=== PATIENT | female | born 1970 | race Caucasian/White ===

== ENCOUNTER 2020-04-22 14:01 | Outpatient (CLI) | payer OTHER, SELFPAY ==
--- NOTE | ~2020-04-22 | US_ITS ---
EXAMINATION: US art doppler w press UE BI EXAM DATE: 04/22/2020 14:51 INDICATION: Left subclavian stenosis. Hypertension. TECHNIQUE: Segmental pressures and plethysmographic and Doppler waveforms of the upper extremity anay jose cruz were obtained. There is no prior study for comparison. FINDINGS: Right and left brachial artery pressures of 151 mm Hg and 153 mm Hg, respectively, are concordant (no rmal difference <= 30 mmHg). RIGHT: Right ulnar/brachial arterial Doppler ratio 1.05 (158 mmHg). Right radial/brachial arterial Doppler ratio 1.03 (156 mmHg). Right index finger 139 mmHg. The waveforms are biphasic. LEFT: Left ulnar/brachial arterial Doppler ratio 1.04 (159 mmHg). Left radial/brachial arterial ratio 1.12 (171 mmHg). Left index finger 144 mmHg. The waveforms are biphasic. IMPRESSION: Symmetric upper extremity Doppler ratios. Reviewed, dictated and finalized at location A. NERATOR OPERATOR
== END 2020-04-22 14:02 | disposition home or self-care (01) ==
PROVIDERS: PCP Family Medicine; Visit Provider Family Medicine
DX: I77.1 Stricture of artery (principal)
CPT/HCPCS: 93923

== ENCOUNTER 2020-05-06 12:11 | Outpatient (CLI) | payer OTHER, SELFPAY ==
--- NOTE | ~2020-05-06 | XR_ITS ---
EXAMINATION: XR shoulder LT min 2V DATE: 05/06/2020 12:37 INDICATION: Left shoulder pain. TECHNIQUE: 5 views of left shoulder were obtained. COMPARISON: None. FINDINGS: Bone alignment is normal. No fracture. There is mild osteoarthritis of glenohumeral joint a nd acromioclavicular joint. There is calcific tendinitis of the rotator cuff. There are dystrophic ca lcifications posterior to the glenohumeral joint. IMPRESSION: 1. Polyarticular osteoarthritis. 2. Calcific tendinitis of the rotator cuff. Reviewed, dictated and finalized at location A. STATION CLERK
== END 2020-05-06 12:12 | disposition home or self-care (01) ==
PROVIDERS: PCP Family Medicine; Visit Provider Physician Assistant
DX: M19.012 Primary osteoarthritis, left shoulder (principal); M75.32 Calcific tendinitis of left shoulder
CPT/HCPCS: 73030

== ENCOUNTER → 2021-05-17 02:01 | Outpatient (CLI) | payer OTHER, SELFPAY ==
[2021-05-17 13:07] LABS: SARS-CoV-2 RNA PCR Negative
== END ==
PROVIDERS: PCP Family Medicine; Visit Provider Internal Medicine Gastroenterology
DX: Z01.812 Encounter for preprocedural laboratory examination (principal); Z20.822 Contact with and (suspected) exposure to COVID-19
CPT/HCPCS: C9803; U0003; U0005

== ENCOUNTER 2021-05-20 00:25 | Day surgery (SDC) | payer OTHER, SELFPAY ==
[2021-05-11 11:51] VITALS: BMI 32.3
[2021-05-20 09:41] VITALS: BP 137/70; PULSE 83; RESP 16; TEMP 36.2; O2SAT 97
[2021-05-20] MEDS: LACTATED RINGERS 1,000 ML 150 ML IV CONT (09:53)
[2021-05-20 09:54] LABS: Glucose Point of Care 148 mg/dl (65-105)
--- NOTE | 2021-05-20 10:07 | WPDGICN ---
Assessment and Plan Assessment and plan (1) Rectal bleeding: Code(s): K62.5 - Hemorrhage of anus and rectum Status: Acute Assessment and Plan: Patient notes rectal bleeding. Bright red blood per rectum with no associated plane. Plan is for colonoscopy to evaluate more thoroughly. Further recommendations will be given after colonoscopy. GI Consult Note Consult date/time: 05/20/21 10:07 HPI: Ayana Stevens is a 50 year old female Referred because of rectal bleeding. Patient notes a long history of bright red blood per rectum typically this will ooze from rectal she area she will need to wear a pad. She notices this sometimes will drip even when sitting on the toilet to urinate. Primarily noted blood with wiping. But sometimes it will change the color of the toilet water. Patient denies any abdominal pain. She reports her bowel habits are normal. She reports that when she urinates it is clear no blood from this area. She presents today for colonoscopy. Review of Systems Review of Systems: Patient complains of dextroscoliosis and difficulty lying on an incline. All systems reviewed & are unremarkable except as noted in HPI and below PMFSH Past Medical History Medical History Allergic rhinitis, cause unspecified Anxiety Essential (primary) hypertension Fatty liver Hepatic cirrhosis Left shoulder pain Low back pain Microcalcification of right breast on mammogram Mixed hyperlipidemia Tobacco abuse Type 2 diabetes mellitus without complications Surgical History Surgical History History of repair of anterior cruciate ligament of left knee Status post cervical spinal fusion Status post ovarian cystectomy Status post tonsillectomy Family History Family History Sibling Hypertension Family history of coronary artery disease Family history of hypercholesterolemia Mother Cerebrovascular accident Father Family history of coronary artery disease Other Diabetes mellitus Social History Social History Smoking packs per day: 1 Smoking cigarettes per day: 20.0 Years smoked: 30 Smoking pack-years: 30.00 Smoking status: Never smoker Tobacco type: cigarettes Second hand tobacco smoke exposure: Yes Smoking end date: 03/05/12 Alcohol intake: current Drinks per week: 4 Substance use: never Substance use type: does not use Living arrangements: with family Gender identity (if verbalized by the patient): Female Spiritual care concerns: No Meds Home Medications and Allergies Home Medications Medication Instructions Recorded Confirmed Type vitamin E (dl, acetate) 180 mg 800 unit PO DAILY 01/29/19 05/11/21 History (400 unit) capsule losartan 100 mg tablet 100 mg PO DAILY #30 tablet 09/20/20 05/11/21 Rx verapamil 180 mg 24 hr 180 mg PO DAILY #90 cap 02/24/21 05/20/21 Rx capsule,extended release fenofibric acid (choline) 135 mg 135 mg PO DAILY #90 cap 03/18/21 05/11/21 Rx capsule,delayed release hydrochlorothiazide 25 mg tablet 25 mg PO DAILY #90 tablet 04/26/21 05/11/21 Rx alprazolam 0.5 mg tablet 0.5 mg PO BID PRN #60 tablet 05/09/21 05/11/21 Rx Centrum Silver Women 1 cap PO DAILY 05/11/21 05/11/21 History atorvastatin [Lipitor] 40 mg PO QPM 05/11/21 05/11/21 History Allergies Allergy/AdvReac Type Severity Reaction Status Date / Time POLO Inhibitors Allergy Intermediate cough Verified 05/20/21 09:40 lisinopril Allergy Intermediate Cough Verified 05/20/21 09:40 NSAIDS (Non-Steroidal Allergy Intermediate Unknown Verified 05/20/21 09:40 Anti-Inflamma Vital Signs Vital Signs - 24 hr 05/20/21 09:41 Temperature 97.2 F L Pulse Rate 83 Respiratory Rate 16 Blood Pressure 137/70 Pulse Oximetry 97 Exam Narrative: Physic
--- NOTE | 2021-05-20 10:24 | WPDANESEPPF ---
Anes - Initial Pre Proc Eval Procedure: Operation Date: 05/20/21 10:30 Proposed Procedures p Colonoscopy - Johnathan Hernandez MD Date/Time: 05/20/21 10:24 Surgeon: Johnathan Hernandez MD Pre Op Diagnosis: Rectal bleeding Patient Data Age: 50 Gender: F Height: 1.65 m Weight: 84.3 kg Last Vital Signs Temp 36.2 C L 05/20/21 09:41 Pulse 83 05/20/21 09:41 Resp 16 05/20/21 09:41 BP 137/70 05/20/21 09:41 Pulse Ox 97 05/20/21 09:41 Allergies Allergy/AdvReac Type Severity Reaction Status Date / Time POLO Inhibitors Allergy Intermediate cough Verified 05/20/21 09:40 lisinopril Allergy Intermediate Cough Verified 05/20/21 09:40 NSAIDS (Non-Steroidal Allergy Intermediate Unknown Verified 05/20/21 09:40 Anti-Inflamma Home Medications Medication Instructions Recorded Confirmed Type vitamin E (dl, acetate) 180 mg 800 unit PO DAILY 01/29/19 05/11/21 History (400 unit) capsule losartan 100 mg tablet 100 mg PO DAILY #30 tablet 09/20/20 05/11/21 Rx verapamil 180 mg 24 hr 180 mg PO DAILY #90 cap 02/24/21 05/20/21 Rx capsule,extended release fenofibric acid (choline) 135 mg 135 mg PO DAILY #90 cap 03/18/21 05/11/21 Rx capsule,delayed release hydrochlorothiazide 25 mg tablet 25 mg PO DAILY #90 tablet 04/26/21 05/11/21 Rx alprazolam 0.5 mg tablet 0.5 mg PO BID PRN #60 tablet 05/09/21 05/11/21 Rx Centrum Silver Women 1 cap PO DAILY 05/11/21 05/11/21 History atorvastatin [Lipitor] 40 mg PO QPM 05/11/21 05/11/21 History Laboratory Tests 05/20/21 09:50 POC Capillary Glucose 148 mg/dl H mg/dl (65-105) Patient hx anesthesia problems: none Family hx anesthesia problems: none Results Review: All pre-operative results and documents have been reviewed as part of the pre-operative evaluation. [facility] Past Medical History Medical History Allergic rhinitis, cause unspecified Anxiety Essential (primary) hypertension Fatty liver Hepatic cirrhosis Left shoulder pain Low back pain Microcalcification of right breast on mammogram Mixed hyperlipidemia Tobacco abuse Type 2 diabetes mellitus without complications Surgical History Surgical History History of repair of anterior cruciate ligament of left knee Status post cervical spinal fusion Status post ovarian cystectomy Status post tonsillectomy Family History Family History Sibling Hypertension Family history of coronary artery disease Family history of hypercholesterolemia Mother Cerebrovascular accident Father Family history of coronary artery disease Other Diabetes mellitus Social History Social History (Updated 05/20/21 @ 10:25 by Kelechi Leon MD) Smoking packs per day: 1 Smoking cigarettes per day: 20.0 Years smoked: 30 Smoking pack-years: 30.00 Smoking status: Former smoker Tobacco type: cigarettes Second hand tobacco smoke exposure: Yes Smoking end date: 03/05/12 Alcohol intake: current Drinks per week: 4 Substance use: never Substance use type: does not use Living arrangements: with family Gender identity (if verbalized by the patient): Female Spiritual care concerns: No Anes - Eval Final PreProcedure Day of Procedure 05/20/21 10:24 Patient weight: obese Heart: regular rate and rhythm Lungs: clear to auscultation Airway: Mallampati scale class II Neurological: alert and oriented Last oral intake: >/= 8 hours ASA classification: II Emergent: no Anesthetic plan: proceed Anesthesia type and monitoring: general GIVS and standard monitoring Results Review: All pre-operative results and documents have been reviewed as part of the pre-operative evaluation. Informed Consent: The patient's anesthetic plan and its attendant risks and benefits were discussed with the patient/family/POA. Questions were solicited and answe
--- NOTE | 2021-05-20 10:45 | SUR.PREOP ---
Pt unable to urinate for urine test. Urine test waived per Dr. Leon anesthesiologist
[2021-05-20 11:05] VITALS: BP 98/54; PULSE 74; RESP 20; O2SAT 96
[2021-05-20 11:15] VITALS: BP 111/62; PULSE 74; RESP 18; O2SAT 100
[2021-05-20 11:25] VITALS: BP 135/87; PULSE 73; RESP 22; O2SAT 100
== END 2021-05-20 11:31 | disposition home or self-care (01) ==
PROVIDERS: PCP Family Medicine; Visit Provider Internal Medicine Gastroenterology
PROC: 0DJD8ZZ Inspection of Lower Intestinal Tract, Via Natural or Artificial Opening Endoscopic (ICD-10-PCS; CPT 45378; principal; 2021-05-20 10:30)
DX: K62.5 Hemorrhage of anus and rectum (principal); D12.3 Benign neoplasm of transverse colon; K64.8 Other hemorrhoids; E11.9 Type 2 diabetes mellitus without complications; E78.2 Mixed hyperlipidemia; I10 Essential (primary) hypertension; K76.0 Fatty (change of) liver, not elsewhere classified; F41.9 Anxiety disorder, unspecified; Z87.891 Personal history of nicotine dependence; E66.9 Obesity, unspecified; Z68.30 Body mass index [BMI] 30.0-30.9, adult
CPT/HCPCS: 45385; 82948; 88305; C9803; J2704; J7120; U0003; U0005

== ENCOUNTER → 2021-12-21 10:35 | Outpatient (CLI) | payer OTHER, SELFPAY ==
--- NOTE | ~2021-12-21 | CT_ITS ---
EXAMINATION:CT lung screening DATE: 12/21/2021 10:56 INDICATION: Personal history of nicotine dependence. Current smoker with 30 pack year history. TECHNIQUE: Computed tomography (CT) of the chest was performed without intravenous contrast. Automate d exposure control and iterative reconstruction technique were employed. The dose-length product (DLP ) was 150.92 mGy-cm. COMPARISON: None. FINDINGS: The lungs demonstrate mild atelectasis. No pleural effusion. The heart size is normal. No p ericardial effusion. There are coronary artery calcifications. There is diffuse hepatic steatosis. Th ere is a 1.7 cm cyst in the liver. There is moderate thoracic spondylosis. There are changes of anter ior fusion procedure in cervical spine. IMPRESSION: 1. Lung-RADS category 1: Negative. Continue annual screening with noncontrast low-dose chest CT in 12 months. Reviewed, dictated and finalized at location B. IMPRESSION: 1. Lung-RADS category 1: Negative. Continue annual screening with noncontrast l ow-dose chest CT in 12 months.
== END ==
PROVIDERS: PCP Family Medicine; Visit Provider Family Medicine
DX: Z12.2 Encounter for screening for malignant neoplasm of respiratory organs (principal); Z87.891 Personal history of nicotine dependence
CPT/HCPCS: 71271

== ENCOUNTER 2021-12-30 13:54 | Outpatient (CLI) | payer OTHER, SELFPAY ==
[2021-12-30 14:34] LABS: INR 1.2; Prothrombin Time 14.9 Seconds (11.1-14.7)
== END 2021-12-30 13:55 | disposition home or self-care (01) ==
LOC: ANHSURGERY 13:58
PROVIDERS: Anesthesiology; PCP Family Medicine; Visit Provider Surgery
DX: K74.60 Unspecified cirrhosis of liver (principal); Z01.818 Encounter for other preprocedural examination
CPT/HCPCS: 36415; 85610; 85730

== ENCOUNTER 2022-01-04 01:08 | Day surgery (SDC) | payer OTHER, SELFPAY ==
--- NOTE | 2021-12-29 12:29 | PC.NURSE ---
Report to the Outpatient Waiting Room, entrance under the green pavilion located off [facility], at time 12:00 on date 01/04/22. Planned Procedure Time: 2:00. Time changes happen often and if your time is changed the preop area will call you the afternoon before. - You and your visitor will be asked to self-screen and do not enter if you have any COVID symptoms. - We encourage only one visitor and NO visitors under age 16 are allowed at this time. Your visitor will receive communication by the phone number that is given day of service. - The patient visitor is requested to social distance or may leave the building when not with patient due to restrictions. - A mask is OPTIONAL within the hospital. Patients may have clear liquids (water, carbonated beverages, clear teas, apple juice) until 3 hours prior to surgery (11:00) with a maximum of 20 ounces. - No food from midnight until time of surgery Take the following medications with a SIP of water the morning of surgery: ALPRAZOLAM IF NEEDED, VERAPAMIL Medications to discontinue per physician: VITAMINS Date to take last dose: 12/31/21 Please no make-up, nail italian, hairspray, perfume, deodorant, or body powder the day of surgery. No jewelry (including any body piercings) or valuables the day of surgery, leave them at home. Please take a shower or bath the night before, or the morning of, surgery with an antibacterial soap. Wear comfortable, loose fitting clothing. - Jewelry must be removed prior to entering the operating room. Rings and piercings that are not removed may be cut off. - The hospital will not accept responsibility for valuables. - Please leave all valuables, including medications, at home the day of surgery. If you are going home after surgery, a licensed local company hazmat driver must drive you home. - NO public transportation without another adult. - We recommend that an adult stay with you for 24 hours following discharge. - We also recommend that you do not drive, make important decision, drink alcoholic beverages, or take any drugs that were not prescribed by your health care provider for at least 24 hours after your discharge time. Follow any additional instructions given to you from your surgeon. If you or anyone in your household have experienced Covid symptoms in the past week, please notify your surgeon or the nurse liaison at the phone number below for possible testing. Telephone instructions given to PT - ANKITA COMBS and asked if any additional questions and then verbalized understanding. Patient advised to call surgeon office or pre surgery nurse liaison [phone] if any additional questions.
--- NOTE | 2022-01-04 12:00 | SUR.PREOP ---
1200- Notified Dr. Rene of patient's PT-14.9, INR- 1.2 from 12/[address] Rene OK to proceed with case, new lab draw for coags are not needed.
[2022-01-04 12:10] VITALS: BP 153/75; PULSE 93; RESP 16; TEMP 37.1; O2SAT 97
[2022-01-04 12:19] VITALS: BMI 32.0
[2022-01-04] MEDS: LACTATED RINGERS 1,000 ML 30 ML IV CONT (12:45)
[2022-01-04 12:48] LABS: Glucose Point of Care 153 mg/dl (65-105)
--- NOTE | 2022-01-04 12:54 | WPDANESEPPF ---
Anes - Initial Pre Proc Eval Procedure: Operation Date: 01/04/22 14:00 Proposed Procedures p Rectal Examination Under Anesthesia with Internal Hemorrhoid Banding - Norm Rene DO Date/Time: 01/04/22 12:54 Surgeon: Norm Rene DO Pre Op Diagnosis: internal hemorrhoids Patient Data Age: 51 Gender: F Height: 1.65 m Weight: 87.25 kg Allergies Allergy/AdvReac Type Severity Reaction Status Date / Time PLOO Inhibitors Allergy Intermediate cough Verified 01/04/22 12:24 acetaminophen Allergy Intermediate Other Verified 01/04/22 12:30 lisinopril Allergy Intermediate Cough Verified 01/04/22 12:24 NSAIDS (Non-Steroidal Allergy Intermediate Other Verified 01/04/22 12:24 Anti-Inflamma Home Medications Medication Instructions Recorded Confirmed Type verapamil 180 mg 24 hr 180 mg PO DAILY #90 caps 02/24/21 01/04/22 Rx capsule,extended release fenofibric acid (choline) 135 mg 135 mg PO DAILY #90 caps 03/18/21 12/29/21 Rx capsule,delayed release (Trilipix) hydrochlorothiazide 25 mg tablet 25 mg PO DAILY #90 tabs 04/26/21 12/29/21 Rx Centrum Silver Women 1 cap PO DAILY 05/11/21 01/04/22 History atorvastatin 40 mg tablet (Lipitor) 40 mg PO QPM 05/11/21 12/29/21 History losartan 100 mg tablet 100 mg PO DAILY #90 tabs 07/08/21 12/29/21 Rx alprazolam 0.5 mg tablet (Xanax) 0.5 mg PO BID PRN anxiety #60 tabs 12/05/21 12/29/21 Rx Laboratory Tests 01/04/22 12:45 POC Capillary Glucose 153 mg/dl H mg/dl (65-105) Patient hx anesthesia problems: none Family hx anesthesia problems: none Results Review: All pre-operative results and documents have been reviewed as part of the pre-operative evaluation. [facility], [facility] Past Medical History Medical History Allergic rhinitis, cause unspecified Anxiety Endometriosis Essential (primary) hypertension Fatty liver Hepatic cirrhosis Left shoulder pain Low back pain Microcalcification of right breast on mammogram Mixed hyperlipidemia Tobacco abuse Type 2 diabetes mellitus without complications Surgical History Surgical History History of left salpingo-oophorectomy History of repair of anterior cruciate ligament of left knee Status post cervical spinal fusion Status post ovarian cystectomy Status post tonsillectomy Family History Family History Sibling Hypertension Family history of coronary artery disease Family history of hypercholesterolemia Mother Cerebrovascular accident Father Family history of coronary artery disease Other Diabetes mellitus Heart disease Social History Social History Smoking packs per day: 1 Smoking cigarettes per day: 20.0 Years smoked: 30 Smoking pack-years: 30.00 Smoking status: Current every day smoker Tobacco type: cigarettes Second hand tobacco smoke exposure: Yes Alcohol intake: current Drinks per week: 4 Alcohol use details: RARE Substance use: never Substance use type: does not use Living arrangements: with family Gender identity (if verbalized by the patient): Female Spiritual care concerns: No Anes - Eval Final PreProcedure Day of Procedure 01/04/22 12:54 Patient weight: obese Heart: regular rate and rhythm Lungs: clear to auscultation Airway: Mallampati scale class II Neurological: alert and oriented Last oral intake: >/= 8 hours ASA classification: III Emergent: no Anesthetic plan: proceed Anesthesia type and monitoring: general GIVS and standard monitoring Results Review: All pre-operative results and documents have been reviewed as part of the pre-operative evaluation. Informed Consent: The patient's anesthetic plan and its attendant risks and benefits were discussed with the patient/family/POA. Questions were solicited and answers pro
--- NOTE | 2022-01-04 13:47 | PM.IMHP ---
H&P: HPI History of Present Illness Date/Time: 01/04/22 13:47 Chief Complaint: Rectal bleeding Narrative: This is a 51-year-old woman presents for internal hemorrhoid rubber banding. She has a history of rectal bleeding and previously had a colonoscopy which was normal except for internal hemorrhoids. She reports no changes since the seen in the office. Review of Systems Review of Systems: All systems reviewed & are unremarkable except as noted in HPI and below Constitutional: Constitutional: Denies chills, Denies fever(s), Denies headache(s) and Denies weight loss Eyes: Eyes: Denies change in vision ENT: Denies dizziness, Denies headache(s), Denies neck mass and Denies throat swelling Cardiovascular: Cardiovascular: Denies chest pain, Denies lightheadedness and Denies dyspnea Respiratory: Respiratory: Denies cough, Denies dyspnea and Denies wheezing Gastrointestinal: Gastrointestinal: Denies abdominal pain, Denies change in bowel habits, Denies nausea and Denies vomiting Genitourinary: Genitourinary: Denies hematuria and Denies dysuria Musculoskeletal: Musculoskeletal: Reports as per HPI Integumentary/Breasts: Skin/Breast: Reports as per HPI Neurologic: Denies dizziness and Denies headache(s) Allergic/Immunologic: Allergic/Immunologic: Denies throat swelling and Denies wheezing PMFSH Past Medical History Medical History Allergic rhinitis, cause unspecified Anxiety Endometriosis Essential (primary) hypertension Fatty liver Hepatic cirrhosis Left shoulder pain Low back pain Microcalcification of right breast on mammogram Mixed hyperlipidemia Tobacco abuse Type 2 diabetes mellitus without complications Surgical History Surgical History History of left salpingo-oophorectomy History of repair of anterior cruciate ligament of left knee Status post cervical spinal fusion Status post ovarian cystectomy Status post tonsillectomy Family History Family History Sibling Hypertension Family history of coronary artery disease Family history of hypercholesterolemia Mother Cerebrovascular accident Father Family history of coronary artery disease Other Diabetes mellitus Heart disease Social History Social History Smoking packs per day: 1 Smoking cigarettes per day: 20.0 Years smoked: 30 Smoking pack-years: 30.00 Smoking status: Current every day smoker Tobacco type: cigarettes Second hand tobacco smoke exposure: Yes Alcohol intake: current Drinks per week: 4 Alcohol use details: RARE Substance use: never Substance use type: does not use Living arrangements: with family Gender identity (if verbalized by the patient): Female Spiritual care concerns: No Meds Home Medications and Allergies Home Medications Medication Instructions Recorded Confirmed Type verapamil 180 mg 24 hr 180 mg PO DAILY #90 caps 02/24/21 01/04/22 Rx capsule,extended release fenofibric acid (choline) 135 mg 135 mg PO DAILY #90 caps 03/18/21 12/29/21 Rx capsule,delayed release (Trilipix) hydrochlorothiazide 25 mg tablet 25 mg PO DAILY #90 tabs 04/26/21 12/29/21 Rx Centrum Silver Women 1 cap PO DAILY 05/11/21 01/04/22 History atorvastatin 40 mg tablet (Lipitor) 40 mg PO QPM 05/11/21 12/29/21 History losartan 100 mg tablet 100 mg PO DAILY #90 tabs 07/08/21 12/29/21 Rx alprazolam 0.5 mg tablet (Xanax) 0.5 mg PO BID PRN anxiety #60 tabs 12/05/21 12/29/21 Rx Allergies Allergy/AdvReac Type Severity Reaction Status Date / Time POLO Inhibitors Allergy Intermediate cough Verified 01/04/22 12:24 acetaminophen Allergy Intermediate Other Verified 01/04/22 12:30 lisinopril Allergy Intermediate Cough Verified 01/04/22 12:24 NSAIDS (Non-Steroidal Allergy Intermediate Other Verified
--- NOTE | 2022-01-04 13:49 | WPDHPUPDATE1 ---
History and Physical Update Update Date/Time: 01/04/22 13:49 History and Physical has been reviewed, including an updated exam of the patient. There are NO changes in the patient's condition. Risks, benefits, and alternatives have been discussed and questions answered. Patient agrees to proceed with procedure.
[2022-01-04] MEDS: ceFAZolin 2 GM/D5W 50 ML 2 GM/50 ML BAG IVPB (14:26)
[2022-01-04] MEDS: LIDO 2%/EPINEPHRINE 1:100,000 50 ML VIAL INFILTRATE (14:46)
[2022-01-04 14:50] VITALS: BP 111/47; PULSE 85; RESP 14; O2SAT 95
--- NOTE | 2022-01-04 14:50 | W.PM.PROC2 ---
Procedure Note - Detailed Date of Procedure 01/04/22 Pre-op Diagnosis internal hemorrhoids Post-op Diagnosis Same Procedure Performed Rectal exam under anesthesia with internal hemorrhoid rubber banding x3 Surgeon Norm Rene, DO Anesthesia MAC and Local (0.25% bupivacaine with epinephrine) Indications This is a 51 year woman who presented with occasional rectal bleeding. She had a colonoscopy in May which showed internal hemorrhoids but was otherwise normal. She has been able to limit bleeding to a certain degree, but she still occasionally has some bright red blood per rectum. Discussions were made with the patient treatment options and decision was made to proceed with rectal exam under anesthesia with internal hemorrhoid rubber banding. Findings Rectal exam under anesthesia was performed. Digital rectal exam was initially performed and there was some firm stool within the vault. No other abnormalities were noted. A Hill-Alcala anoscope was then inserted and the anal rectal canal was carefully visualized. The largest internal hemorrhoid appeared to be in the right anterior region, but there were some mild internal hemorrhoids in the right posterior and left lateral region as well. Internal hemorrhoid banding was performed in all 3 locations. The patient procedure well. Description of Procedure Procedure as well as risks, benefits, and alternatives were discussed with the patient. Written consent was obtained and placed in chart prior to procedure. Patient was brought back to surgical suite. She was placed in left lateral decubitus position on the operating table. Time-out was done to confirm patient and procedure. IV sedation was administered by the anesthesia department. Her perirectal area was prepped and draped in sterile fashion using Betadine prep. Digital rectal exam was initially performed. A Hill-Alcala anoscope was then inserted in the anorectal canal was carefully inspected. A Fansler anoscope was then inserted. Rubber-band ligation of internal hemorrhoids or performed the left lateral, right anterior, right posterior locations. The hemorrhoid base was infiltrated with 0.25% bupivacaine with epinephrine. No other abnormalities were noted. The anoscope was then removed. Patient was awakened from anesthesia and transferred to recovery. Estimated Blood Loss 2 Complications No immediate complications Condition Stable Disposition Same day [facility] Billing Surgery - Charge Forward: Surgery Billing
[2022-01-04 15:20] VITALS: BP 114/58; PULSE 82; RESP 20
== END 2022-01-04 15:28 | disposition home or self-care (01) ==
PROVIDERS: PCP Family Medicine; Visit Provider Surgery
PROC: (CPT 46221; principal; 2022-01-04 14:00)
DX: K64.8 Other hemorrhoids (principal); I10 Essential (primary) hypertension; E78.2 Mixed hyperlipidemia; E11.9 Type 2 diabetes mellitus without complications; K76.0 Fatty (change of) liver, not elsewhere classified; F41.9 Anxiety disorder, unspecified; Z98.1 Arthrodesis status; E66.9 Obesity, unspecified; Z68.32 Body mass index [BMI] 32.0-32.9, adult; F17.210 Nicotine dependence, cigarettes, uncomplicated
CPT/HCPCS: 46221; 36415; 82948; 85610; 85730; A9270; J0690; J1100; J2250; J2405; J2704; J3010; J7120

== ENCOUNTER 2022-01-10 21:45 | Emergency (ER) | payer OTHER, SELFPAY ==
[2022-01-10] VITALS (20 sets, daily range): BP systolic 111–129; BP diastolic 57–79; PULSE 79–86; RESP 12–19; TEMP 36.8; O2SAT 96–100
--- NOTE | 2022-01-10 22:01 | ECG_ITS ---
Measurements Intervals [place] Rate: 81 P: 56 IN: 180 QRS: 44 QRSD: 97 T: 31 QT: 414 QTc: 482 Interpretive Statements SINUS RHYTHM POSSIBLE LEFT ATRIAL ENLARGEMENT ANTEROSEPTAL INFARCT, AGE INDETERMINATE ABNORMAL ECG NO PREVIOUS ECG AVAILABLE FOR COMPARISON Electronically Signed On 01-11-2022 6:40:59 [employer] by George Pal D.O.
[2022-01-10 22:17] LABS: Basophils Absolute Auto 0.1 K/mm3 (0.0-0.1); Basophils Percent Auto 0.7 % (0.2-1.2); Eosinophils Absolute Auto 0.1 K/mm3 (0-0.3); Eosinophils Percent Auto 1.9 % (0-4.4); Hematocrit 38.9 % (37.0-47.0); Hemoglobin 13.3 g/dL (12.0-15.0); Immature Granulocyte Absolute 0.04 K/mm3 (0.00-0.031); Immature Granulocyte Percent A 0.5 % (0-0.5); Lymphocytes Absolute Auto 2.17 K/mm3 (0.9-3.2); Lymphocytes Percent Auto 29.6 % (18.3-44.2); Mean Corpuscular HGB Conc 34.2 g/dl (32-36); Mean Corpuscular Volume 93.5 fl (80-100); Mean Platelet Volume 9.9 fl (7.4-10.4); Monocytes Absolute Auto 0.8 K/mm3 (0.1-0.6); Monocytes Percent Auto 10.4 % (2.6-8.5); Neutrophils Absolute Auto 4.2 K/mm3 (1.3-6.7); Neutrophils Percent Auto 56.9 % (45.5-73.1); Platelet Count Result 211 k/mm3 (150-375); Red Blood Count 4.16 M/mm3 (4.2-5.4); Red Cell Distribution Width 14.4 % (11.5-14.5); White Blood Count 7.3 K/mm3 (4.5-10.0)
[2022-01-10 22:29] LABS: INR 1.3; Partial Thromboplastin Time 28.9 SECONDS (22.3-36.8); Prothrombin Time 15.7 Seconds (11.1-14.7)
--- NOTE | 2022-01-10 22:31 | PC.NURSE ---
[facility] hung 1L NS RN allowed fluid to infuse.pt. had 1L NS infused. MD amandaed
--- NOTE | 2022-01-10 22:32 | ED.GENADULT ---
HPI - General Adult General Chief complaint: Shortness of Breath/Dyspnea Stated complaint: SOB Time Seen by Provider: 01/10/22 21:50 History of Present Illness HPI narrative: Patient is a 51-year-old female who presents ER with multiple complaints. Main complaint is bloody stool occurring at 6:30 PM. Patient recently underwent banding of internal hemorrhoids by Dr. Rene 1 week ago. No issues with bowel movements or bleeding since the procedure until today. Unknown number of time she had a bowel movement but she estimates around 10 times. She reports it is liquid blood. It was mixed with stool. No syncope. Patient has been feeling weak and voided herself as well. No loss of consciousness. She is on no blood thinners. Patient reports mild dyspnea but no new cough or congestion. No wheezing. Related Data Home Medications Medication Instructions Recorded Confirmed Centrum Silver Women 1 cap PO DAILY 05/11/21 01/04/22 atorvastatin 40 mg tablet (Lipitor) 40 mg PO QPM 05/11/21 12/29/21 Allergies Allergy/AdvReac Type Severity Reaction Status Date / Time POLO Inhibitors Allergy Intermediate cough Verified 01/04/22 12:24 acetaminophen Allergy Intermediate Other Verified 01/04/22 12:30 lisinopril Allergy Intermediate Cough Verified 01/04/22 12:24 NSAIDS (Non-Steroidal Allergy Intermediate Other Verified 01/04/22 12:24 Anti-Inflamma Review of Systems Review of Systems: All systems reviewed & are unremarkable except as noted in HPI and below Constitutional: Constitutional: Denies chills, Denies fatigue and Denies fever(s) ENT: Denies nasal congestion and Denies sore throat Cardiovascular: Cardiovascular: Denies chest pain, Denies rapid heart rate and Denies radiating jaw, neck or arm pain Respiratory: Respiratory: Denies cough and Reports dyspnea Gastrointestinal: Gastrointestinal: Denies abdominal pain, Denies nausea and Denies vomiting Comments: Positive for rectal bleeding Neurologic: Denies syncope, Denies focal weakness and Denies numbness Psychiatric: Psychiatric: Reports anxiety and Denies depression ON LICENSE OF [facility] Past Medical History Medical History Allergic rhinitis, cause unspecified Anxiety Endometriosis Essential (primary) hypertension Fatty liver Hepatic cirrhosis Left shoulder pain Low back pain Microcalcification of right breast on mammogram Mixed hyperlipidemia Tobacco abuse Type 2 diabetes mellitus without complications Surgical History Surgical History History of left salpingo-oophorectomy History of repair of anterior cruciate ligament of left knee Status post cervical spinal fusion Status post ovarian cystectomy Status post tonsillectomy Family History Family History Sibling Hypertension Family history of coronary artery disease Family history of hypercholesterolemia Mother Cerebrovascular accident Father Family history of coronary artery disease Other Diabetes mellitus Heart disease Social History Social History Smoking packs per day: 1 Smoking cigarettes per day: 20.0 Years smoked: 30 Smoking pack-years: 30.00 Smoking status: Current every day smoker Tobacco type: cigarettes Second hand tobacco smoke exposure: Yes Alcohol intake: current Drinks per week: 4 Alcohol use details: RARE Substance use: never Substance use type: does not use Gender identity (if verbalized by the patient): Female Spiritual care concerns: No Exam Narrative: GENERAL: Anxious-appearing, well-nourished, and in no acute distress. HEAD: Normocephalic, atraumatic. EYES: PERRL and EOMI. ENT: Mucous membranes moist. CHEST: Clear to auscultation. No respiratory distress. HEART: Regular rate and rhythm. Normal peripheral pulses. ABDOMEN: Soft, nonten
[2022-01-10 22:34] LABS: Ethanol 54 mg/dL (<10)
[2022-01-10 22:43] LABS: Alanine Aminotransferase 44 U/L (6-35); Albumin Level 4.1 g/dL (3.5-5.1); Alkaline Phosphatase 62 U/L (38-126); Anion Gap 18 mmol/L (8-16); Aspartate Amino Transferase 65 U/L (14-36); Bilirubin,Total 1.1 mg/dL (0.2-1.3); Blood Urea Nitrogen 15 mg/dL (7-17); Calcium 8.9 mg/dL (8.4-10.2); Carbon Dioxide 17 mmol/L (22-30); Chloride 100 mmol/L (98-107); Estimated CRCL calculation 121 ml/min; Estimated Glomerular Filt Rate > 60; Glucose 143 mg/dL (65-110); Potassium 2.7 mmol/L (3.4-5.0); Sodium 135 mmol/L (137-145)
--- NOTE | 2022-01-10 23:46 | PC.NURSE ---
Pt signed AMA, ERP encouraged pt to stay for IV K+ but pt refused.
== END 2022-01-10 23:45 | disposition left against medical advice (07) ==
PROVIDERS: Emergency Provider Emergency Medicine; PCP Family Medicine
DX: K62.5 Hemorrhage of anus and rectum (principal); E87.6 Hypokalemia; F17.210 Nicotine dependence, cigarettes, uncomplicated; F41.9 Anxiety disorder, unspecified; I10 Essential (primary) hypertension; E11.9 Type 2 diabetes mellitus without complications
CPT/HCPCS: 36415; 80053; 80307; 85025; 85610; 85730; 93005; 99283

== ENCOUNTER 2022-01-20 11:23 | Outpatient (CLI) | payer OTHER, SELFPAY ==
[2022-01-20 12:00] LABS: Anion Gap 8 mmol/L (8-16); Blood Urea Nitrogen 18 mg/dL (7-17); Calcium 10.5 mg/dL (8.4-10.2); Carbon Dioxide 27 mmol/L (22-30); Chloride 104 mmol/L (98-107); Estimated Glomerular Filt Rate > 60; Glucose 129 mg/dL (65-110); Potassium 3.8 mmol/L (3.4-5.0); Sodium 139 mmol/L (137-145)
== END 2022-01-20 11:24 | disposition home or self-care (01) ==
LOC: ANHLAB 11:24
PROVIDERS: PCP Family Medicine; Visit Provider Family Medicine
DX: E87.6 Hypokalemia (principal)
CPT/HCPCS: 36415; 80048

== ENCOUNTER 2022-02-09 09:00 | Outpatient (CLI) | payer OTHER, SELFPAY ==
--- NOTE | ~2022-02-09 | MM_ITS ---
EXAMINATION: MM screening [facility] BI w sanya HISTORY: Screening mammogram TECHNIQUE: Craniocaudal and mediolateral oblique 3-D tomosynthesis images were obtained and synthetic 2-D images were generated. CAD analysis was submitted and interpreted. COMPARISON: 01/21/2018, 10/23/2017, 01/15/2017, 01/05/2017 BREAST PARENCHYMAL COMPOSITION: There are scattered areas of fibroglandular density. FINDINGS: No suspicious mass, calcification, or architectural distortion are identified in either edi ast to suggest malignancy. There has been no suspicious interval change. IMPRESSION: 1. No mammographic evidence of malignancy. 2. Recommend routine screening mammography in one year. 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
== END 2022-02-09 09:01 | disposition home or self-care (01) ==
LOC: ANHIMG 09:00
PROVIDERS: PCP Family Medicine; Visit Provider Obstetrics & Gynecology
DX: Z12.31 Encounter for screening mammogram for malignant neoplasm of breast (principal)
CPT/HCPCS: 77063; 77067

== ENCOUNTER 2022-11-27 14:29 | Outpatient (CLI) | payer BC, SELFPAY ==
--- NOTE | 2022-11-27 15:35 | ECHO_ITS ---
Patient Info Name: Ayana Stevens Age: 52 years : 1970 Gender: Female Ht: 65 in Wt: 196 lbs BSA: 2.05 m2 HR: 70 bpm BP: 129 / 70 mmHg Heart Rhythm: Sinus Rhythm Technical Quality: Fair Exam Date: 11/27/2022 3:47 PM Exam Location: [facility] Patient Status: Outpatient Admit Date: 11/27/2022 Staff Ordering Physician: Dash Bobo PA-C Banking Consultant: Katie Tapia RDCS Attending Provider: Dash Bobo PA-C Referring Physician: Jeramie PALACIOS; Exam Type: CA echo doppler color flow Study Info Indications R01.1 - Cardiac murmur, unspecified Complete two-dimensional, color flow and Doppler transthoracic echocardiogram is performed. Summary 1. Complete two-dimensional, color flow and Doppler transthoracic echocardiogram is performed. 2. Left ventricular chamber dimension is normal. 3. Left ventricular systolic function is normal, estimated at 60-65%. 4. The left ventricular diastolic function is abnormal. 5. E/e' 15 is elevated. 6. The mitral valve has mildly calcified annulus. 7. There is trace mitral valve regurgitation. 8. There is trace tricuspid valve regurgitation. 9. No pulmonary hypertension, estimated pulmonary arterial systolic pressure is 23 mmHg. 10. There is trace pulmonic regurgitation. Left Ventricle E/e' 15 is elevated. Left ventricular chamber dimension is normal. Left ventricular systolic function is normal, estimated at 60-65%. The left ventricular diastolic function is abnormal. Right Ventricle Right ventricular chamber dimension is normal. Right ventricular systolic function is normal. Left Atria Left atrial chamber dimension is normal. Right Atria Right atrial chamber dimension is normal. Aortic Valve The aortic valve is trileaflet. There is no aortic valve stenosis. There is no aortic valve regurgitation. Pulmonic Valve There is trace pulmonic regurgitation. Mitral Valve The mitral valve has mildly calcified annulus. There is no mitral valve stenosis. There is trace mitral valve regurgitation. Tricuspid Valve There is trace tricuspid valve regurgitation. No pulmonary hypertension, estimated pulmonary arterial systolic pressure is 23 mmHg. Pericardium/Pleural There is no pericardial effusion. Inferior Vena Cava Normal inferior vena cava with >50% collapse upon inspiration consistent with normal right atrial pressure, 5 mmHg. Aorta The aortic root size at the sinus of Valsalva is normal. Left Ventricular Outflow Tract Name Value Normal LVOT 2D LVOT Diameter 2.0 cm LVOT Doppler LVOT Peak Gradient 5 mmHg LVOT Mean Gradient 2 mmHg LVOT VTI 23 cm LVOT VTI/AV VTI Ratio 0.5 LVOT Stroke Volume 73 ml LVOT CO 5.2 l/min LVOT CI 2.5 l/min/m2 Pulmonic Valve Name Value Normal RVOT Doppler
== END 2022-11-27 14:30 | disposition home or self-care (01) ==
LOC: ANHCARD 14:29
PROVIDERS: PCP Family Medicine; Visit Provider Physician Assistant
DX: R01.1 Cardiac murmur, unspecified (principal)
CPT/HCPCS: 93306

== ENCOUNTER 2023-06-14 09:44 | Outpatient (CLI) | payer BC, SELFPAY ==
--- NOTE | ~2023-06-14 | US_ITS ---
Limited Abdominal Sonogram: Real-time sonographic imaging of the right upper quadrant was performed. Clinical History: Cirrhosis Findings: The liver appears heterogeneous, with no evidence of mass lesion or bile duct dilatation. Liver measures 22.2 cm in length. Main portal vein demonstrates normal direction of flow. The gallbla dder is well distended, and contains layering sludge and small stones.. The common bile duct measures 4 mm. The visualized pancreas, aorta, and IVC are unremarkable. Impression: Gallbladder sludge and stones. Heterogeneous hepatic echotexture compatible with cirrhosis or other chronic liver disease. Associate d hepatomegaly. Reviewed, dictated and finalized at location M. Impression: Gallbladder sludge and stones. Heterogeneous hepatic echotexture compatible with cirrhosis or other chronic li kaylen disease. Associated hepatomegaly.
== END 2023-06-14 09:45 ==
LOC: MICIMG 09:44
PROVIDERS: PCP Family Medicine; Visit Provider Family Medicine
DX: K74.60 Unspecified cirrhosis of liver (principal); K82.4 Cholesterolosis of gallbladder
CPT/HCPCS: 76705

== ENCOUNTER 2023-07-13 12:14 | Outpatient (CLI) | payer BC, SELFPAY ==
--- NOTE | ~2023-07-13 | MM_ITS ---
EXAMINATION: MM screening [facility] BI w sanya HISTORY: Screening mammogram TECHNIQUE: Craniocaudal and mediolateral oblique 3-D tomosynthesis images were obtained and synthetic 2-D images were generated. CAD analysis was submitted and interpreted. COMPARISON: 02/09/2022 bilateral screening mammogram 01/21/2018 diagnostic bilateral mammogram and limited right breast ultrasound BREAST PARENCHYMAL COMPOSITION: There are scattered areas of fibroglandular density. FINDINGS: Biopsy marker on the right; history of prior benign right stereotactic breast biopsy. There is no evidence of suspicious mass, calcification, or architectural distortion to suggest malignancy in either breast. There has been no suspicious interval change. IMPRESSION: 1. No mammographic evidence of malignancy. 2. Recommend routine screening mammography in one year. BI-RADS Category 1: Negative Reviewed, dictated and finalized at location B.
== END 2023-07-13 12:15 ==
PROVIDERS: PCP Family Medicine; Visit Provider Obstetrics & Gynecology
DX: Z12.31 Encounter for screening mammogram for malignant neoplasm of breast (principal)
CPT/HCPCS: 77063; 77067

== ENCOUNTER 2023-08-10 10:35 | Outpatient (CLI) | payer BC, SELFPAY ==
--- NOTE | ~2023-08-10 | XR_ITS ---
Left Knee Technique: AP, lateral, and sunrise views were obtained. Clinical History: Pain Findings: No fracture or dislocation is seen. Prior ACL reconstruction noted. Osseous alignment is an atomic. Joint spaces are preserved without degenerative or erosive change. Soft tissues are unremarka ble. No joint effusion is seen. Impression: No acute abnormality. Status post prior ACL reconstruction. Reviewed, dictated and finalized at location . Impression: No acute abnormality. Status post prior ACL reconstruction.
== END 2023-08-10 10:36 ==
LOC: MICIMG 10:36
PROVIDERS: PCP Family Medicine; Visit Provider Family Medicine
DX: M25.562 Pain in left knee (principal)
CPT/HCPCS: 73560

== ENCOUNTER 2023-12-28 13:44 | Outpatient (CLI) | payer BC, SELFPAY ==
--- NOTE | ~2023-12-28 | CT_ITS ---
EXAMINATION:CT lung screening DATE: 12/28/2023 14:00 INDICATION: Nicotine dependence, unspecified, uncomplicated. Current smoker with 30 pack year history . TECHNIQUE: Computed tomography (CT) of the chest was performed without intravenous contrast. Automate d exposure control and iterative reconstruction technique were employed. The dose-length product (DLP ) was 142.91 mGy-cm. COMPARISON: Chest CT 12/21/2021 FINDINGS: There is a new 6 mm nodule in right upper lobe. No pleural effusion. The heart size is norm al. There are coronary artery calcifications. No pericardial effusion. The liver demonstrates surface nodularity, consistent with cirrhosis. There is mild splenomegaly. Paraesophageal varices are noted. There are changes of anterior fusion procedure in cervical spine. There is moderate thoracic spondyl osis. IMPRESSION: 1. Lung-RADS 4A: Suspicious. Noncontrast low-dose chest CT is recommended in 3 months. 2. Cirrhosis of the liver with portal venous hypertension. Reviewed, dictated and finalized at location A.
== END 2023-12-28 13:45 | disposition home or self-care (01) ==
LOC: ANHIMG 13:45
PROVIDERS: PCP Family Medicine; Visit Provider Family Medicine
DX: Z12.2 Encounter for screening for malignant neoplasm of respiratory organs (principal); F17.210 Nicotine dependence, cigarettes, uncomplicated
CPT/HCPCS: 71271

== ENCOUNTER 2024-01-04 03:02 | Day surgery (SDC) | payer BC, SELFPAY ==
[2023-12-27 10:44] VITALS: BMI 30.4
--- NOTE | 2023-12-31 13:00 | SUR.PREOP ---
Patient called regarding her recent CT lung scan results and wanting to know if the recent finding were going to be an issue. Discussed her cirrhosis diagnosis with her and the need to do the EGD versus lung results and her needed to have an EGD to evaluate her paraesophogeal varicies. Patient voiced understanding. We will proceed with her EGD on Sunday.
[2024-01-04 11:25] VITALS: BP 137/70; PULSE 78; RESP 19; TEMP 36.2; O2SAT 99
[2024-01-04] MEDS: LACTATED RINGERS 1,000 ML 150 ML IV CONT (11:43)
--- NOTE | 2024-01-04 11:53 | P.PNAN_ITS ---
Anes - Initial Pre Proc Eval Procedure: Operation Date: 01/04/24 12:30 Proposed Procedures p Esophagogastroduodenoscopy - Herminio Waldron MD Date/Time: 01/04/24 11:53 Surgeon: Herminio Waldron MD Pre Op Diagnosis: Cirrhosis of liver Patient Data Age: 53 Gender: F Height: 1.65 m Weight: 82 kg Last Vital Signs Temp 36.2 C L 01/04/24 11:25 Pulse 78 01/04/24 11:25 Resp 19 01/04/24 11:25 BP 137/70 01/04/24 11:25 Pulse Ox 99 01/04/24 11:25 O2 Del Method Room Air 01/04/24 11:25 Allergies Allergy/AdvReac Type Severity Reaction Status Date / Time POLO Inhibitors Allergy Intermediate cough Verified 01/04/24 11:23 acetaminophen Allergy Intermediate Other Verified 01/04/24 11:23 lisinopril Allergy Intermediate Cough Verified 01/04/24 11:23 NSAIDS (Non-Steroidal Allergy Intermediate Other Verified 01/04/24 11:23 Anti-Inflamma Home Medications Medication Instructions Recorded Confirmed Type Centrum Silver Women 1 cap PO DAILY 05/11/21 01/04/24 History atorvastatin 40 mg tablet See Rx Instructions .Route 04/03/23 01/04/24 Rx .COMPLEX #90 tabs fenofibrate micronized 134 mg 134 mg PO DAILY #90 caps 04/03/23 01/04/24 Rx capsule hydrochlorothiazide 25 mg tablet 25 mg PO DAILY #90 tabs 04/03/23 01/04/24 Rx losartan 100 mg tablet 100 mg PO DAILY #90 tabs 04/03/23 01/04/24 Rx verapamil 180 mg 24 hr 180 mg PO DAILY #90 caps 04/03/23 01/04/24 Rx capsule,extended release alprazolam 0.5 mg tablet (Xanax) 0.5 mg PO BID PRN anxiety #60 tabs 12/12/23 01/04/24 Rx Patient hx anesthesia problems: none Family hx anesthesia problems: none Results Review: All pre-operative results and documents have been reviewed as part of the pre- operative evaluation. [facility] Past Medical History Medical History Allergic rhinitis, cause unspecified Anxiety Endometriosis Essential (primary) hypertension Fatty liver Hepatic cirrhosis Left shoulder pain Low back pain Microcalcification of right breast on mammogram Mixed hyperlipidemia Tobacco abuse Type 2 diabetes mellitus without complications Surgical History Surgical History History of hemorrhoidectomy 01/04/2022 - rectal EUA; internal hemorrhoid rubber banding x3 History of left salpingo-oophorectomy History of repair of anterior cruciate ligament of left knee Status post cervical spinal fusion Status post ovarian cystectomy Status post tonsillectomy Family History Family History Sibling Hypertension Family history of coronary artery disease Family history of hypercholesterolemia Mother Cerebrovascular accident Father Family history of coronary artery disease Other Diabetes mellitus Heart disease Social History Social History Smoking packs per day: 1 Smoking cigarettes per day: 20.0 Years smoked: 30 Smoking pack-years: 30.00 Smoking status: Current every day smoker Tobacco type: cigarettes Second hand tobacco smoke exposure: Yes Alcohol intake: current Drinks per week: 4 Alcohol use details: rarely 4 drinks per yr Substance use: never Substance use type: does not use Lack of Transportation: No Lack of Food: Never True Current Housing: I Have Housing Concerned About Future Housing: No Difficulty Paying Gas/Electric Bills: No Difficulty Paying for Meds: No Currently Unemployed: No Education: Bachelor's Degree Living arrangements: with family Occupation/Education: occupation Gender identity (if verbalized by the patient): Female Sexual Orientation (if Verbalized by the Patient): Straight or Heterosexual Spiritual care concerns: No Anes - Eval Final PreProcedure Day of Procedure 01/04/24 11:53 Patient weight: overweight Heart: regular rate and rhythm Lungs: decreased breath sounds Airway: Mallampati scale class II Neurological: alert and oriented Last oral intake: >/= 8 hours ASA classification: III Emergent: no Anesthetic plan: proceed Anesthesia type and monitoring: general GIVS and standard monitoring Results Review: All pre-operative results and documents have been reviewed as part of the pre- operative evaluation. Informed Consent: The patient's anesthetic plan and its attendant risks and benefits were discussed with the patient/family/POA. Questions were solicited and answers provided to the satisfaction of the patient/family/POA.
--- NOTE | 2024-01-04 12:09 | SUR.PREOP ---
Pt voiced concern in signing consent because she did not want any biopsies done, or have a chance of bleeding due to the fact she will be traveling alone in the next couple of days. Conversation had with Dr. Villaseñor at bedside regarding concerns of biopsies and/or banding during procedure. Pt states she is fine with Dr. Villaseñor doing anything he thinks is medically necessary during procedure. Signed consent with pt and Dr. Villaseñor at bedside.
--- NOTE | 2024-01-04 12:13 | PM.HPGS ---
History of Present Illness History of Present Illness Consent: Risks, benefits, and alternatives have been discussed and questions answered. Patient agrees to proceed with procedure. Chief complaint: Cirrhosis of liver Narrative: Ayana Stevens is a 53 year old female here for egd because h/o cirrhosis, denies gib Review of Systems Review of Systems: All systems reviewed & are unremarkable except as noted in HPI and below PMFSH Past Medical History Medical History Allergic rhinitis, cause unspecified Anxiety Endometriosis Essential (primary) hypertension Fatty liver Hepatic cirrhosis Left shoulder pain Low back pain Microcalcification of right breast on mammogram Mixed hyperlipidemia Tobacco abuse Type 2 diabetes mellitus without complications Surgical History Surgical History History of hemorrhoidectomy 01/04/2022 - rectal EUA; internal hemorrhoid rubber banding x3 History of left salpingo-oophorectomy History of repair of anterior cruciate ligament of left knee Status post cervical spinal fusion Status post ovarian cystectomy Status post tonsillectomy Family History Family History Sibling Hypertension Family history of coronary artery disease Family history of hypercholesterolemia Mother Cerebrovascular accident Father Family history of coronary artery disease Other Diabetes mellitus Heart disease Social History Social History Smoking packs per day: 1 Smoking cigarettes per day: 20.0 Years smoked: 30 Smoking pack-years: 30.00 Smoking status: Current every day smoker Tobacco type: cigarettes Second hand tobacco smoke exposure: Yes Alcohol intake: current Drinks per week: 4 Alcohol use details: rarely 4 drinks per yr Substance use: never Substance use type: does not use Lack of Transportation: No Lack of Food: Never True Current Housing: I Have Housing Concerned About Future Housing: No Difficulty Paying Gas/Electric Bills: No Difficulty Paying for Meds: No Currently Unemployed: No Education: Bachelor's Degree Living arrangements: with family Occupation/Education: occupation Gender identity (if verbalized by the patient): Female Sexual Orientation (if Verbalized by the Patient): Straight or Heterosexual Spiritual care concerns: No Meds Home Medications and Allergies Home Medications Medication Instructions Recorded Confirmed Type Centrum Silver Women 1 cap PO DAILY 05/11/21 01/04/24 History atorvastatin 40 mg tablet See Rx Instructions .Route 04/03/23 01/04/24 Rx .COMPLEX #90 tabs fenofibrate micronized 134 mg 134 mg PO DAILY #90 caps 04/03/23 01/04/24 Rx capsule hydrochlorothiazide 25 mg tablet 25 mg PO DAILY #90 tabs 04/03/23 01/04/24 Rx losartan 100 mg tablet 100 mg PO DAILY #90 tabs 04/03/23 01/04/24 Rx verapamil 180 mg 24 hr 180 mg PO DAILY #90 caps 04/03/23 01/04/24 Rx capsule,extended release alprazolam 0.5 mg tablet (Xanax) 0.5 mg PO BID PRN anxiety #60 tabs 12/12/23 01/04/24 Rx Allergies Allergy/AdvReac Type Severity Reaction Status Date / Time POLO Inhibitors Allergy Intermediate cough Verified 01/04/24 11:23 acetaminophen Allergy Intermediate Other Verified 01/04/24 11:23 lisinopril Allergy Intermediate Cough Verified 01/04/24 11:23 NSAIDS (Non-Steroidal Allergy Intermediate Other Verified 01/04/24 11:23 Anti-Inflamma Vital Signs Vital Signs - 24 hr 01/04/24 11:25 Temperature 97.1 F L Pulse Rate 78 Respiratory Rate 19 Blood Pressure 137/70 Pulse Oximetry 99 Oxygen Delivery Room Air Exam Const: General: comfortable and no acute distress HENMT: Face/Nose/Sinus: Normal nares present Eyes: General: appearance normal, both eyes and all related structures Neck: Neck: no JVD Resp: Auscultation: clear to auscultation bilaterally Cardio: Rate: regular rate Rhythm: regular rhythm GI: Inspection: non-distended GI Palp: Yes Soft to palpation Skin: General skin exam: normal color Neuro: General: gait normal Speech: normal speech Extrem: General: normal to inspection Psych: Mental Status: mental status grossly normal Assessment and Plan Assessment and plan (1) Hepatic cirrhosis: Qualifiers: Hepatic cirrhosis type: other cirrhosis Qualified Code(s): K74.69 - Other cirrhosis of liver Code(s): K74.60 - Unspecified cirrhosis of liver Status: Acute Assessment and Plan: probably mash related egd to assess if ev
[2024-01-04 12:25] VITALS: BP 120/56; PULSE 74; RESP 22; O2SAT 99
[2024-01-04 12:35] VITALS: BP 113/53; PULSE 65; RESP 19; O2SAT 99
[2024-01-04 12:45] VITALS: BP 122/62; PULSE 66; RESP 15; O2SAT 99
--- NOTE | 2024-01-04 13:12 | SUR.PHASEII ---
Discharge reviewed processed and complete, Pt. alert and oriented x3 and denies pain, dizziness, and shortness of breath at this time, vital signs stable, pt. verbalized understanding of all discharge teaching and instructions.
== END 2024-01-04 13:10 | disposition home or self-care (01) ==
PROVIDERS: PCP Family Medicine; Referring Provider Nurse Practitioner Family; Visit Provider Internal Medicine Gastroenterology
PROC: 0DJ08ZZ Inspection of Upper Intestinal Tract, Via Natural or Artificial Opening Endoscopic (ICD-10-PCS; CPT 43235; principal; 2024-01-04 12:30)
DX: K74.69 Other cirrhosis of liver (principal); I85.00 Esophageal varices without bleeding; K29.70 Gastritis, unspecified, without bleeding; I10 Essential (primary) hypertension; E78.2 Mixed hyperlipidemia; E11.9 Type 2 diabetes mellitus without complications; F41.9 Anxiety disorder, unspecified; N80.9 Endometriosis, unspecified; F17.210 Nicotine dependence, cigarettes, uncomplicated; Z98.890 Other specified postprocedural states; Z98.1 Arthrodesis status; Z82.49 Family history of ischemic heart disease and other diseases of the circulatory system
CPT/HCPCS: 43244; J2003; J2704; J7120

== ENCOUNTER 2024-01-18 14:07 | Outpatient (CLI) | payer SELFPAY ==
[2024-01-18 14:26] LABS: Basophils Percent Auto 0.4 % (0.2-1.2); Eosinophils Absolute Auto 0.1 K/mm3 (0-0.3); Eosinophils Percent Auto 1.1 % (0-4.4); Immature Granulocyte Absolute 0.04 K/mm3 (0.00-0.031); Immature Granulocyte Percent A 0.7 % (0-0.5); Lymphocytes Absolute Auto 0.95 K/mm3 (0.9-3.2); Lymphocytes Percent Auto 17.1 % (18.3-44.2); Mean Corpuscular HGB Conc 33.3 g/dl (32-36); Mean Corpuscular Hemoglobin 32.2 pg (26-34); Mean Corpuscular Volume 96.6 fl (80-100); Mean Platelet Volume 9.8 fl (7.4-10.4); Monocytes Absolute Auto 0.9 K/mm3 (0.1-0.6); Monocytes Percent Auto 16.9 % (2.6-8.5); Neutrophils Absolute Auto 3.5 K/mm3 (1.3-6.7); Neutrophils Percent Auto 63.8 % (45.5-73.1); Platelet Count Result 314 k/mm3 (150-375); Red Blood Count 2.05 M/mm3 (4.2-5.4); White Blood Count 5.6 K/mm3 (4.5-10.0)
[2024-01-18 14:38] LABS: Hematocrit 19.8 % (37.0-47.0); Hemoglobin 6.6 g/dL (12.0-15.0)
[2024-01-18 14:52] LABS: Iron 21 ug/dL (37-170)
[2024-01-18 15:04] LABS: Percent Iron Saturation 9 % (20-50)
[2024-01-18 15:07] LABS: Anion Gap 8 mmol/L (4-12); Blood Urea Nitrogen 10 mg/dL (7-17); Calcium 9.8 mg/dL (8.4-10.2); Carbon Dioxide 26 mmol/L (22-30); Chloride 99 mmol/L (98-107); Estimated Glomerular Filt Rate > 60; Glucose 99 mg/dL (65-110); Potassium 2.8 mmol/L (3.4-5.0); Sodium 133 mmol/L (137-145)
== END 2024-01-18 14:08 | disposition home or self-care (01) ==
LOC: ANHLAB 14:08
PROVIDERS: PCP Family Medicine; Visit Provider Nurse Practitioner Family
DX: K74.60 Unspecified cirrhosis of liver (principal); I85.00 Esophageal varices without bleeding
CPT/HCPCS: 36415; 80048; 82728; 83540; 83550; 85025

== ENCOUNTER 2024-01-18 15:06 | Emergency (ER) | payer BC, SELFPAY ==
[2024-01-18] VITALS (10 sets, daily range): BP systolic 103–117; BP diastolic 40–64; PULSE 69–75; RESP 16–19; TEMP 36.1–37.7; O2SAT 98–100
--- NOTE | 2024-01-18 15:28 | ED.RECABL ---
HPI - Recheck/Abnormal Lab/Rx General Chief Complaint: Recheck/Abnormal Lab/Rx <Heather Burgos PA-C - Last Filed: 01/18/24 15:41> Stated Complaint: unknown critical labs, told to come to ED <Heather Burgos PA-C - Last Filed: 01/18/24 15:41> Time Seen by Provider: 01/18/24 15:33 <Heather Burgos PA-C - Last Filed: 01/18/24 15:41> Focused HPI: This is a 53 year old female that presents to the ER for abnormal outpatient blood work. Patient has recently had to have banding of esophageal varices in a hospital in [place]. She was following up with her harbormaster here. Outpatient blood work was done which showed a critical hemoglobin. She was prompted to be seen in the ER. Patient reports feeling tired. Denies any known current bleeding. GENERAL: Pale, well-nourished, and in no acute distress. HEAD: Normocephalic, atraumatic. CHEST: Clear to auscultation. ?No respiratory distress. HEART: Regular rate and rhythm.? NEURO: ?Alert and oriented x3. Patient screened in triage and initial orders placed.? ?Additional care and disposition to be based upon?diagnostic testing and treatment. <Heather Burgos PA-C - Last Filed: 01/18/24 15:41> History of Present Illness HPI narrative: 53-year-old female presenting with low hemoglobin. Patient recently had variceal banding after the ruptured. This was done in [place] while she was on a trip. She was able to be discharged and she followed up with her GI doctor today who ordered outpatient blood work. Showed a low hemoglobin so she was advised to come to the ER. She complains of fatigue but no other complaints. No hematemesis, melena, hematochezia. No abdominal pain, nausea or vomiting. <Candy Webber MD - Last Filed: 01/18/24 21:52> Related Data Home Medications: Home Medications Medication Instructions Recorded Confirmed Centrum Silver Women 1 cap PO DAILY 05/11/21 01/18/24 amoxicillin 875 mg tablet 875 mg PO Q12H 01/18/24 01/18/24 ferrous sulfate 325 mg (65 mg 325 mg PO DAILY 01/18/24 01/18/24 iron) tablet hydrocodone 5 mg-acetaminophen 325 1 tablet PO Q8H PRN Pain 01/18/24 01/18/24 mg tablet <Heather Burgos PA-C - Last Filed: 01/18/24 15:41> Allergies/Adverse Reactions: Allergies Allergy/AdvReac Type Severity Reaction Status Date / Time POLO Inhibitors Allergy Intermediate cough Verified 01/18/24 13:53 acetaminophen Allergy Intermediate Other Verified 01/18/24 13:53 lisinopril Allergy Intermediate Cough Verified 01/18/24 13:53 NSAIDS (Non-Steroidal Allergy Intermediate Other Verified 01/18/24 13:53 Anti-Inflamma <Heather Burgos PA-C - Last Filed: 01/18/24 15:41> Review of Systems Review of Systems: All systems reviewed & are unremarkable except as noted in HPI and below <Candy Webber MD - Last Filed: 01/18/24 21:52> [facility] Past Medical History Medical History: Medical History Allergic rhinitis, cause unspecified Anxiety Endometriosis Essential (primary) hypertension Fatty liver Hepatic cirrhosis Left shoulder pain Low back pain Microcalcification of right breast on mammogram Mixed hyperlipidemia Tobacco abuse Type 2 diabetes mellitus without complications <Heather Burgos PA-C - Last Filed: 01/18/24 15:41> Surgical History Surgical History: Surgical History History of hemorrhoidectomy 01/04/2022 - rectal EUA; internal hemorrhoid rubber banding x3 History of left salpingo-oophorectomy History of repair of anterior cruciate ligament of left knee Status post cervical spinal fusion Status post ovarian cystectomy Status post tonsillectomy <Heather Burgos PA-C - Last Filed: 01/18/24 15:41> Family History Family History: Family History Sibling Hypertension Family history of coronary artery disease Family history of hypercholesterolemia Mother Cerebrovascular accident Father Family history of coronary artery disease Other Diabetes mellitus Heart disease <Heather Burgos PA-C - Last Filed: 01/18/24 15:41> Social History Social History: Social History Smoking packs per day: 1 Smoking cigarettes per day: 20.0 Years smoked: 30 Smoking pack-years: 30.00 Smoking status: Current every day smoker Tobacco type: cigarettes Second hand tobacco smoke exposure: Yes Alcohol intake: current Drinks per week: 4 Alcohol use details: rarely 4 drinks per yr Substance use: never Substance use type: does not use Lack of Transportation: No Lack of Food: Never True Current Housing: I Have Housing Concerned About Future Housing: No Difficulty Paying Gas/Electric Bills: No Difficulty Paying for Meds: No Currently Unemployed: No Education: Bachelor's Degree Living arrangements: with family Occupation/Education: occupation Gender identity (if verbalized by the patient): Female Sexual Orientation (if Verbalized by the Patient): Straight or Heterosexual Spiritual care concerns: No <Heather Burgos PA-C - Last Filed: 01/18/24 15:41> Exam Narrative: GENERAL: Pale, appears tired, pleasant cooperative HEAD: Normocephalic, atraumatic. EYES: PERRLA and EOMI. ENT: Mucous membranes moist. NECK: Supple. CHEST: No respiratory distress. HEART: Regular rate and rhythm ABDOMEN: Soft, nontender, nondistended EXTREMITIES: Normal range of motion. SKIN: Warm, dry, no rash. NEURO: No focal deficits. Alert and oriented x3. PSYCH: Normal mood and affect. <Candy Webber MD - Last Filed: 01/18/24 21:52> Course Vital Signs Vital signs: Vital Signs Temperature 97.0 F L 01/18/24 15:15 Pulse Rate 71 01/18/24 15:15 Respiratory Rate 16 01/18/24 15:15 Blood Pressure 113/40 L 01/18/24 15:15 Pulse Oximetry 100 01/18/24 15:15 Oxygen Delivery Room Air 01/18/24 15:15 Temperature 99.8 F H 01/18/24 20:22 Pulse Rate 73 01/18/24 20:22 Respiratory Rate 18 01/18/24 20:22 Blood Pressure 108/57 L 01/18/24 20:22 Pulse Oximetry 100 01/18/24 20:22 Oxygen Delivery Room Air 01/18/24 15:15 <Heather Burgos PA-C - Last Filed: 01/18/24 15:41> Vital Signs Temperature 97.0 F L 01/18/24 15:15 Pulse Rate 71 01/18/24 15:15 Respiratory Rate 16 01/18/24 15:15 Blood Pressure 113/40 L 01/18/24 15:15 Pulse Oximetry 100 01/18/24 15:15 Oxygen Delivery Room Air 01/18/24 15:15 Temperature 99.8 F H 01/18/24 20:22 Pulse Rate 73 01/18/24 20:22 Respiratory Rate 18 01/18/24 20:22 Blood Pressure 108/57 L 01/18/24 20:22 Pulse Oximetry 100 01/18/24 20:22 Oxygen Delivery Room Air 01/18/24 15:15 <Candy Webber MD - Last Filed: 01/18/24 21:52> MDM - Recheck/Abnormal Lab/Rx MDM Narrative Medical decision making narrative: 53-year-old female presenting with low hemoglobin. Vitals are within normal limits. Exam remarkable for the above. Patient blood work shows hemoglobin of 6.6. She denies any bleeding since her variceal banding. Potassium is 2.8. 2 units of blood have been ordered as well as IV and p.o. potassium repletion. Patient received 2 units of blood and potassium repletion. Repeat blood work shows a normal potassium and a hemoglobin of 8.5. She feels well and feels comfortable going home which is what she prefers. She has an EGD scheduled on Sunday. Strict return precautions were given. Patient is agreeable this plan. Discharged in stable condition. <Candy Webber MD - Last Filed: 01/18/24 21:52> Differential Diagnosis Differential diagnosis: Likely other (Anemia, electrolyte derangement, fatigue) <Candy Webber MD - Last Filed: 01/18/24 21:52> Medical Records Attestation: I reviewed the patient's medical records. <Candy Webber MD - Last Filed: 01/18/24 21:52> Lab Data Attestation: I reviewed the patient's lab results. <Candy Webber MD - Last Filed: 01/18/24 21:52> Result diagrams: 01/18/24 21:17 01/18/24 21:17 <Heather Burgos PA-C - Last Filed: 01/18/24 15:41> Labs: Lab Results 01/18/24 01/18/24 Range/Units 15:43 21:17 WBC 4.3 L (4.5-10.0) K/mm3 RBC 2.72 L (4.2-5.4) M/mm3 Hgb 8.5 L (12.0-15.0) g/dL Hct 25.2 L (37.0-47.0) % MCV 92.6 (80-100) fl MCH 31.3 (26-34) pg MCHC 33.7 (32-36) g/dl RDW 15.6 H (11.5-14.5) % Plt Count 280 (150-375) k/mm3 MPV 9.7 (7.4-10.4) fl Immature Gran % (Auto) 0.9 H (0-0.5) % Neut % (Auto) 56.4 (45.5-73.1) % Lymph % (Auto) 20.1 (18.3-44.2) % [place] % (Auto) 20.1 H (2.6-8.5) % Eos % (Auto) 1.8 (0-4.4) % Baso % (Auto) 0.7 (0.2-1.2) % Lymph # (Auto) 0.87 L (0.9-3.2) K/mm3 [place] # (Auto) 0.9 H (0.1-0.6) K/mm3 Eos # (Auto) 0.1 (0-0.3) K/mm3 Baso # (Auto) 0.0 (0.0-0.1) K/mm3 Abs Immat Gran (auto) 0.04 H (0.00-0.031) K/mm3 Absolute Neuts (auto) 2.4 (1.3-6.7) K/mm3 Absolute Nucleated RBC 0.020 H (0.0-0.012) K/mm3 Nucleated RBC % 0.5 H (0.0-0.2) % Platelet Estimate Increased (Adequate) Hypochromasia 1+ Anisocytosis 1+ Microcytosis 1+ (NORMAL) Schistocytes None seen PT 17.5 H (11.1-14.7) Seconds INR 1.4 APTT 40.3 H (22.3-36.8) Seconds Sodium 132 L (137-145) mmol/L Potassium 4.0 (3.4-5.0) mmol/L Chloride 102 (98-107) mmol/L Carbon Dioxide 24 (22-30) mmol/L Anion Gap 6 (4-12) mmol/L BUN 9 (7-17) mg/dL Creatinine 0.50 L (0.7-1.0) mg/dL Estim Creat Clear Calc 116 ml/min Estimated GFR > 60 (59 - ) Glucose 85 (65-110) mg/dL Calcium 9.5 (8.4-10.2) mg/dL Magnesium 2.1 (1.6-2.3) mg/dL Blood Type A Positive Antibody Screen Negative Crossmatch See Detail <Heahter Burgos PA-C - Last Filed: 01/18/24 15:41> Lab Results 01/18/24 01/18/24 Range/Units 15:43 21:17 WBC 4.3 L (4.5-10.0) K/mm3 RBC 2.72 L (4.2-5.4) M/mm3 Hgb 8.5 L (12.0-15.0) g/dL Hct 25.2 L (37.0-47.0) % MCV 92.6 (80-100) fl MCH 31.3 (26-34) pg MCHC 33.7 (32-36) g/dl RDW 15.6 H (11.5-14.5) % Plt Count 280 (150-375) k/mm3 MPV 9.7 (7.4-10.4) fl Immature Gran % (Auto) 0.9 H (0-0.5) % Neut % (Auto) 56.4 (45.5-73.1) % Lymph % (Auto) 20.1 (18.3-44.2) % [place] % (Auto) 20.1 H (2.6-8.5) % Eos % (Auto) 1.8 (0-4.4) % Baso % (Auto) 0.7 (0.2-1.2) % Lymph # (Auto) 0.87 L (0.9-3.2) K/mm3 [place] # (Auto) 0.9 H (0.1-0.6) K/mm3 Eos # (Auto) 0.1 (0-0.3) K/mm3 Baso # (Auto) 0.0 (0.0-0.1) K/mm3 Abs Immat Gran (auto) 0.04 H (0.00-0.031) K/mm3 Absolute Neuts (auto) 2.4 (1.3-6.7) K/mm3 Absolute Nucleated RBC 0.020 H (0.0-0.012) K/mm3 Nucleated RBC % 0.5 H (0.0-0.2) % Platelet Estimate Increased (Adequate) Hypochromasia 1+ Anisocytosis 1+ Microcytosis 1+ (NORMAL) Schistocytes None seen PT 17.5 H (11.1-14.7) Seconds INR 1.4 APTT 40.3 H (22.3-36.8) Seconds Sodium 132 L (137-145) mmol/L Potassium 4.0 (3.4-5.0) mmol/L Chloride 102 (98-107) mmol/L Carbon Dioxide 24 (22-30) mmol/L Anion Gap 6 (4-12) mmol/L BUN 9 (7-17) mg/dL Creatinine 0.50 L (0.7-1.0) mg/dL Estim Creat Clear Calc 116 ml/min Estimated GFR > 60 (59 - ) Glucose 85 (65-110) mg/dL Calcium 9.5 (8.4-10.2) mg/dL Magnesium 2.1 (1.6-2.3) mg/dL Blood Type A Positive Antibody Screen Negative Crossmatch See Detail <Candy Webber MD - Last Filed: 01/18/24 21:52> Critical Care Time Critical Care Time Critical Care Time: Yes <Candy Webber MD - Last Filed: 01/18/24 21:52> Total Critical Care Time: 32 <Candy eWbber MD - Last Filed: 01/18/24 21:52> Discharge Plan Discharge Clinical Impression: Acute anemia, Hypokalemia <Heather Burgos PA-C - Last Filed: 01/18/24 15:41> Patient Disposition: Home, Self-Care <Heather Burgos PA-C - Last Filed: 01/18/24 15:41> Condition: Stable <Heather Burgos PA-C - Last Filed: 01/18/24 15:41> Instructions: Antibiotic Form, Hypokalemia (ED), Anemia (ED) <Heather Burgos PA-C - Last Filed: 01/18/24 15:41> Additional Instructions: We have given you blood and potassium and your levels are now safe. Please make sure to follow-up closely with your harbormaster. If your symptoms worsen or other concerning symptoms arise, please return to the ER. <Heather Burgos PA-C - Last Filed: 01/18/24 15:41> Prescriptions: No Action hydrocodone-acetaminophen 5-325 mg tablet 1 tablet PO Q8H PRN (Reason: Pain) amoxicillin 875 mg tablet 875 mg PO Q12H ferrous sulfate 325 mg (65 mg iron) tablet 325 mg PO DAILY Centrum Silver Women 1 cap PO DAILY verapamil 180 mg capsule,ext rel. pellets 24 hr 180 mg PO DAILY Qty: 90 5RF losartan 100 mg tablet 100 mg PO DAILY Qty: 90 3RF hydrochlorothiazide 25 mg tablet 25 mg PO DAILY Qty: 90 3RF fenofibrate micronized 134 mg capsule 134 mg PO DAILY Qty: 90 3RF atorvastatin 40 mg tablet See Rx Instructions .ROUTE .COMPLEX Qty: 90 3RF Dose Instruction: TAKE 1 TABLET DAILY Rx Instructions: TAKE 1 TABLET DAILY alprazolam [Xanax] 0.5 mg tablet 0.5 mg PO BID PRN (Reason: anxiety) Qty: 60 0RF <Heather Burgos PA-C - Last Filed: 01/18/24 15:41> Follow-up/Referrals: Ze Wisdom MD [Primary Care Provider] - Herminio Waldron MD [Physician] - <Heather Burgos PA-C - Last Filed: 01/18/24 15:41>
[2024-01-18 16:03] LABS: Magnesium 2.1 mg/dL (1.6-2.3)
[2024-01-18 16:10] LABS: INR 1.4; Prothrombin Time 17.5 Seconds (11.1-14.7)
[2024-01-18 16:11] LABS: Partial Thromboplastin Time 40.3 Seconds (22.3-36.8)
[2024-01-18] MEDS: SODIUM CHLORIDE 0.9% IV 250 ML 30 ML IV CONT (17:29)
[2024-01-18] MEDS: TUBING, BLOOD SET 1 EACH XX ×2 (17:29→18:36)
[2024-01-18] MEDS: POTASSIUM CHLORIDE 20 MEQ ER TABLET 40 MEQ PO ×2 (18:17→19:26)
[2024-01-18] MEDS: SODIUM CHLORIDE 0.9% IV 250 ML 30 ML (18:36)
[2024-01-18] MEDS: KCL 20 MEQ/SW 100 ML 100 ML 50 MEQ IVPB (19:39)
--- NOTE | 2024-01-18 20:10 | PC.NURSE ---
Patient c/o burning infusion of potassium. Rate decreased from 50ml/hr to 25 ml/hr.
[2024-01-18 21:22] LABS: Basophils Percent Auto 0.7 % (0.2-1.2); Eosinophils Absolute Auto 0.1 K/mm3 (0-0.3); Eosinophils Percent Auto 1.8 % (0-4.4); Hematocrit 25.2 % (37.0-47.0); Hemoglobin 8.5 g/dL (12.0-15.0); Immature Granulocyte Absolute 0.04 K/mm3 (0.00-0.031); Immature Granulocyte Percent A 0.9 % (0-0.5); Lymphocytes Absolute Auto 0.87 K/mm3 (0.9-3.2); Lymphocytes Percent Auto 20.1 % (18.3-44.2); Mean Corpuscular HGB Conc 33.7 g/dl (32-36); Mean Corpuscular Hemoglobin 31.3 pg (26-34); Mean Corpuscular Volume 92.6 fl (80-100); Mean Platelet Volume 9.7 fl (7.4-10.4); Monocytes Absolute Auto 0.9 K/mm3 (0.1-0.6); Monocytes Percent Auto 20.1 % (2.6-8.5); Neutrophils Absolute Auto 2.4 K/mm3 (1.3-6.7); Neutrophils Percent Auto 56.4 % (45.5-73.1); Nucleated Red Blood Cells Perc 0.5 % (0.0-0.2); Platelet Count Result 280 k/mm3 (150-375); Red Blood Count 2.72 M/mm3 (4.2-5.4); Red Cell Distribution Width 15.6 % (11.5-14.5); White Blood Count 4.3 K/mm3 (4.5-10.0)
[2024-01-18 21:35] LABS: Anion Gap 6 mmol/L (4-12); Blood Urea Nitrogen 9 mg/dL (7-17); Calcium 9.5 mg/dL (8.4-10.2); Carbon Dioxide 24 mmol/L (22-30); Chloride 102 mmol/L (98-107); Estimated CRCL calculation 116 ml/min; Estimated Glomerular Filt Rate > 60; Glucose 85 mg/dL (65-110); Sodium 132 mmol/L (137-145)
[2024-01-18 21:41] LABS: Anisocytosis 1+; Hypochromasia 1+; Microcytosis 1+ (NORMAL); Platelet Estimate Increased (Adequate); Schistocytes None Seen
== END 2024-01-18 22:22 | disposition home or self-care (01) ==
PROVIDERS: Physician Assistant; Emergency Provider Emergency Medicine; PCP Family Medicine
DX: D64.9 Anemia, unspecified (principal); E87.6 Hypokalemia; Z98.890 Other specified postprocedural states; I10 Essential (primary) hypertension; E11.9 Type 2 diabetes mellitus without complications; E78.2 Mixed hyperlipidemia; K74.60 Unspecified cirrhosis of liver; F17.210 Nicotine dependence, cigarettes, uncomplicated; Z98.1 Arthrodesis status; Z90.79 Acquired absence of other genital organ(s); Z90.721 Acquired absence of ovaries, unilateral; Z79.899 Other long term (current) drug therapy
CPT/HCPCS: 36415; 36430; 80048; 83735; 85025; 85610; 85730; 86850; 86900; 86901; 86923; 96361; 96365; 96366; 99285; A9270; J3480; J7050; P9016

== ENCOUNTER 2024-01-21 00:29 | Day surgery (SDC) | payer BC, SELFPAY ==
[2024-01-18 13:55] VITALS: BMI 29.9
[2024-01-21 10:09] VITALS: BP 119/61; PULSE 73; RESP 18; TEMP 36.6; O2SAT 100
[2024-01-21] MEDS: LACTATED RINGERS 1,000 ML 150 ML IV CONT (10:30)
[2024-01-21 10:33] LABS: Glucose Point of Care 85 mg/dl (65-105)
--- NOTE | 2024-01-21 10:35 | WPDANESEPPF ---
Anes - Initial Pre Proc Eval Procedure: Operation Date: 01/21/24 11:30 Proposed Procedures p Esophagogastroduodenoscopy - Ion Hernández MD Date/Time: 01/21/24 10:35 Surgeon: Ion Hernández MD Pre Op Diagnosis: esophogeal varicies Patient Data Age: 53 Gender: F Height: 1.65 m Weight: 79 kg Last Vital Signs Temp 36.6 C 01/21/24 10:09 Pulse 73 01/21/24 10:09 Resp 18 01/21/24 10:09 BP 119/61 01/21/24 10:09 Pulse Ox 100 01/21/24 10:09 O2 Del Method Room Air 01/21/24 10:09 Allergies Allergy/AdvReac Type Severity Reaction Status Date / Time POLO Inhibitors Allergy Intermediate cough Verified 01/21/24 10:08 acetaminophen Allergy Intermediate Other Verified 01/21/24 10:08 lisinopril Allergy Intermediate Cough Verified 01/21/24 10:08 NSAIDS (Non-Steroidal Allergy Intermediate Other Verified 01/21/24 10:08 Anti-Inflamma Home Medications Medication Instructions Recorded Confirmed Type Centrum Silver Women 1 cap PO DAILY 05/11/21 01/21/24 History atorvastatin 40 mg tablet See Rx Instructions .Route 04/03/23 01/21/24 Rx .COMPLEX #90 tabs fenofibrate micronized 134 mg 134 mg PO DAILY #90 caps 04/03/23 01/21/24 Rx capsule hydrochlorothiazide 25 mg tablet 25 mg PO DAILY #90 tabs 04/03/23 01/21/24 Rx losartan 100 mg tablet 100 mg PO DAILY #90 tabs 04/03/23 01/21/24 Rx verapamil 180 mg 24 hr 180 mg PO DAILY #90 caps 04/03/23 01/21/24 Rx capsule,extended release alprazolam 0.5 mg tablet (Xanax) 0.5 mg PO BID PRN anxiety #60 tabs 01/18/24 01/18/24 Rx amoxicillin 875 mg tablet 875 mg PO Q12H 01/18/24 01/21/24 History ferrous sulfate 325 mg (65 mg 325 mg PO DAILY 01/18/24 01/21/24 History iron) tablet hydrocodone 5 mg-acetaminophen 325 1 tablet PO Q8H PRN Pain 01/18/24 01/21/24 History mg tablet Laboratory Tests 01/21/24 10:28 POC Capillary Glucose 85 mg/dl (65-105) Patient hx anesthesia problems: none Family hx anesthesia problems: none Results Review: All pre-operative results and documents have been reviewed as part of the pre-operative evaluation. [facility] Past Medical History Medical History Allergic rhinitis, cause unspecified Anxiety Endometriosis Essential (primary) hypertension Fatty liver Hepatic cirrhosis Left shoulder pain Low back pain Microcalcification of right breast on mammogram Mixed hyperlipidemia Tobacco abuse Type 2 diabetes mellitus without complications Surgical History Surgical History History of hemorrhoidectomy 01/04/2022 - rectal EUA; internal hemorrhoid rubber banding x3 History of left salpingo-oophorectomy History of repair of anterior cruciate ligament of left knee Status post cervical spinal fusion Status post ovarian cystectomy Status post tonsillectomy Family History Family History Sibling Hypertension Family history of coronary artery disease Family history of hypercholesterolemia Mother Cerebrovascular accident Father Family history of coronary artery disease Other Diabetes mellitus Heart disease Social History Social History Smoking packs per day: 1 Smoking cigarettes per day: 20.0 Years smoked: 30 Smoking pack-years: 30.00 Smoking status: Current every day smoker Tobacco type: cigarettes Second hand tobacco smoke exposure: Yes Alcohol intake: current Drinks per week: 4 Alcohol use details: rarely 4 drinks per yr Substance use: never Substance use type: does not use Lack of Transportation: No Lack of Food: Never True Current Housing: I Have Housing Concerned About Future Housing: No Difficulty Paying Gas/Electric Bills: No Difficulty Paying for Meds: No Currently Unemployed: No Education: Bachelor's Degree Living arrangements: with family Occupation/Education: occupation Gender identity (if verbalized by the patient): Female Sexual Orientation (if Verbalized by the Patient): Straight or Heterosexual Spiritual care concerns: No Anes - Eval Final PreProcedure Day of Procedure 01/21/24 10:35 Patient weight: overweight Heart: regular rate and rhythm Lungs: clear to auscultation Airway: Mallampati scale class II Neurological: alert and oriented Last oral intake: >/= 8 hours ASA classification: III Emergent: no Anesthetic plan: proceed Anesthesia type and monitoring: general GIVS and standard monitoring Results Review: All pre-operative results and documents have been reviewed as part of the pre-operative evaluation. Informed Consent: The patient's anesthetic plan and its attendant risks and benefits were discussed with the patient/family/POA. Questions were solicited and answers provided to the satisfaction of the patient/family/POA.
--- NOTE | 2024-01-21 11:04 | P.HP_ITS ---
H&P: HPI History of Present Illness Date/Time: 01/21/24 11:04 Chief Complaint: Hematemesis Narrative: this patient was found to have cirrhosis Related to fatty liver disease incidentally discovered during routine ultrasound early this year. On 01/04/2024 she underwent banding of esophageal varices electively. Six days later, she had a massive hematemesis and melena episode while traveling in [place]. She was seen in the local hospital but was never given any records or reports about what was done. After that event, she has remained stable and is here for EGD. Review of Systems Review of Systems: All systems reviewed & are unremarkable except as noted in HPI and below PMFSH Past Medical History Medical History Allergic rhinitis, cause unspecified Anxiety Endometriosis Essential (primary) hypertension Fatty liver Hepatic cirrhosis Left shoulder pain Low back pain Microcalcification of right breast on mammogram Mixed hyperlipidemia Tobacco abuse Type 2 diabetes mellitus without complications Surgical History Surgical History History of hemorrhoidectomy 01/04/2022 - rectal EUA; internal hemorrhoid rubber banding x3 History of left salpingo-oophorectomy History of repair of anterior cruciate ligament of left knee Status post cervical spinal fusion Status post ovarian cystectomy Status post tonsillectomy Family History Family History Sibling Hypertension Family history of coronary artery disease Family history of hypercholesterolemia Mother Cerebrovascular accident Father Family history of coronary artery disease Other Diabetes mellitus Heart disease Social History Social History Smoking packs per day: 1 Smoking cigarettes per day: 20.0 Years smoked: 30 Smoking pack-years: 30.00 Smoking status: Current every day smoker Tobacco type: cigarettes Second hand tobacco smoke exposure: Yes Alcohol intake: current Drinks per week: 4 Alcohol use details: rarely 4 drinks per yr Substance use: never Substance use type: does not use Lack of Transportation: No Lack of Food: Never True Current Housing: I Have Housing Concerned About Future Housing: No Difficulty Paying Gas/Electric Bills: No Difficulty Paying for Meds: No Currently Unemployed: No Education: Bachelor's Degree Living arrangements: with family Occupation/Education: occupation Gender identity (if verbalized by the patient): Female Sexual Orientation (if Verbalized by the Patient): Straight or Heterosexual Spiritual care concerns: No Meds Home Medications and Allergies Home Medications Medication Instructions Recorded Confirmed Type Centrmarquise Silver Women 1 cap PO DAILY 05/11/21 01/21/24 History atorvastatin 40 mg tablet See Rx Instructions .Route 04/03/23 01/21/24 Rx .COMPLEX #90 tabs fenofibrate micronized 134 mg 134 mg PO DAILY #90 caps 04/03/23 01/21/24 Rx capsule hydrochlorothiazide 25 mg tablet 25 mg PO DAILY #90 tabs 04/03/23 01/21/24 Rx losartan 100 mg tablet 100 mg PO DAILY #90 tabs 04/03/23 01/21/24 Rx verapamil 180 mg 24 hr 180 mg PO DAILY #90 caps 04/03/23 01/21/24 Rx capsule,extended release alprazolam 0.5 mg tablet (Xanax) 0.5 mg PO BID PRN anxiety #60 tabs 01/18/24 01/18/24 Rx amoxicillin 875 mg tablet 875 mg PO Q12H 01/18/24 01/21/24 History ferrous sulfate 325 mg (65 mg 325 mg PO DAILY 01/18/24 01/21/24 History iron) tablet hydrocodone 5 mg-acetaminophen 325 1 tablet PO Q8H PRN Pain 01/18/24 01/21/24 History mg tablet Allergies Allergy/AdvReac Type Severity Reaction Status Date / Time OPLO Inhibitors Allergy Intermediate cough Verified 01/21/24 10:08 acetaminophen Allergy Intermediate Other Verified 01/21/24 10:08 lisinopril Allergy Intermediate Cough Verified 01/21/24 10:08 NSAIDS (Non-Steroidal Allergy Intermediate Other Verified 01/21/24 10:08 Anti-Inflamma Vital Signs Vital Signs - 24 hr 01/21/24 10:09 Temperature 98 F Pulse Rate 73 Respiratory Rate 18 Blood Pressure 119/61 Pulse Oximetry 100 Oxygen Delivery Room Air Exam Const: General: cooperative, alert and awake Eyes: Other: mild jaundice Chest: Other: multiple telangiectasias in upper chest and neck Resp: Effort & Inspection: normal respiratory effort GI: Other: Hepatomegaly, right lobe firm, palpable 8 cm below right costal margin Assessment and Plan Assessment and plan (1) Esophageal varices: Qualifiers: Esophageal varices type: secondary Esophageal varices bleeding: without bleeding Qualified Code(s): I85.10 - Secondary esophageal varices without bleeding Code(s): I85.00 - Esophageal varices without bleeding Status: Acute Assessment and Plan: will perform EGD and assess cause of recent hematemesis. Differential diagnosis includes variceal bleeding versus post banding ulcers. Yolette-Jorge tear is another possibility. If there are more residual varices will perform variceal ligation and will start carvedilol at discharge. (2) Hepatic cirrhosis: Qualifiers: Hepatic cirrhosis type: other cirrhosis Qualified Code(s): K74.69 - Other cirrhosis of liver Code(s): K74.60 - Unspecified cirrhosis of liver Status: Acute
[2024-01-21] MEDS: BENZOCAINE (*SP) 60 ML SPRAY CAN (HURRICAINE) 1 SPRAY MUCOUS MEM (11:45)
[2024-01-21 11:59] VITALS: BP 107/54; PULSE 70; RESP 16; O2SAT 98
[2024-01-21 12:09] VITALS: BP 104/62; PULSE 74; RESP 18; O2SAT 100
[2024-01-21 12:19] VITALS: BP 126/76; PULSE 76; RESP 20; O2SAT 100
--- NOTE | 2024-01-21 13:20 | WPDHPUPDATE1 ---
History and Physical Update Update Date/Time: 01/21/24 13:20 See EGD report. Deep ulcers from recent banding. I consider she is not a candidate for esphageal banding. I presribed Carvedilol 6.25 mg HS, might increase to 6.25 mg bid in 7-10 days if tolerated, ideally she should visit our office then. Discussed about the possiblity of liver transplant in the near future (MELD 3.0 14 points). She has clinically significant portal hypertension in addition to coagulopathy (INR 1.4) , hyponatremia and low-normal albumin. She also has moderate LLEE edema and is taking hydrochlorothiazyde. Changing to spironolactone should be also considered.
== END 2024-01-21 12:37 | disposition home or self-care (01) ==
PROVIDERS: PCP Family Medicine; Visit Provider Internal Medicine Gastroenterology
PROC: 0DJ08ZZ Inspection of Upper Intestinal Tract, Via Natural or Artificial Opening Endoscopic (ICD-10-PCS; CPT 43235; principal; 2024-01-21 11:30)
DX: I85.00 Esophageal varices without bleeding (principal); K22.10 Ulcer of esophagus without bleeding; F41.9 Anxiety disorder, unspecified; N80.9 Endometriosis, unspecified; I10 Essential (primary) hypertension; K74.60 Unspecified cirrhosis of liver; E78.2 Mixed hyperlipidemia; E11.9 Type 2 diabetes mellitus without complications; F17.210 Nicotine dependence, cigarettes, uncomplicated; Z79.891 Long term (current) use of opiate analgesic; Z98.890 Other specified postprocedural states; Z98.1 Arthrodesis status; Z82.49 Family history of ischemic heart disease and other diseases of the circulatory system
CPT/HCPCS: 43235; 82948; J2003; J2704; J7120